=== PATIENT | male | born 1935 | race Caucasian/White ===

== ENCOUNTER 2019-12-08 15:21 | Emergency (ER) | payer MEDICAID ==
--- NOTE | 2019-12-08 15:25 | EDM.PDOC ---
ED HPI GENERAL MEDICAL PROBLEM - General Chief Complaint: General Stated Complaint: FALL VIA NORTH Time Seen by Provider: 12/08/19 15:21 Source of Information: Reports: Patient, EMS History Limitations: Reports: No Limitations - History of Present Illness INITIAL COMMENTS - FREE TEXT/NARRATIVE: 84-year-old male was being wheeled into the clinic to have his shoulder examined when he slipped out of his wheelchair onto the floor. Because of his fall he was sent to the emergency room, however now that he is here he said he was not hurt. His main concern is his left shoulder, he fell on it 3 weeks ago and it had been black and blue and sore ever since, bruising is markedly improved and almost gone but it continues to be painful. 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 Onset: Sudden Duration: Hour(s): (Within the last hour) Associated Symptoms: Reports: No Other Symptoms - Related Data Allergies Allergy/AdvReac Type Severity Reaction Status Date / Time aspirin Allergy Cannot Verified 12/08/19 15:28 Remember iodine Allergy Cannot Verified 12/08/19 15:28 Remember Home Meds: Home Meds Acetaminophen [Tylenol] 1,000 mg PO Q6H PRN 12/08/19 [History] Allopurinol [Zyloprim] 100 mg PO DAILY 12/08/19 [History] Colchicine 0.6 mg PO Q4HR PRN 12/08/19 [History] Docusate Sodium [Dok] 100 mg PO TID PRN 12/08/19 [History] Doxycycline [Vibramycin] 100 mg PO BID 12/08/19 [History] Escitalopram Oxalate [Lexapro] 10 mg PO DAILY 12/08/19 [History] Finasteride 5 mg PO DAILY 12/08/19 [History] Furosemide [Lasix] 40 mg PO DAILY 12/08/19 [History] Lactulose [Cephulac] 30 ml PO TID 12/08/19 [History] Lactulose [Chronulac] 30 - 45 ml PO TID PRN 12/08/19 [History] Rifaximin [Xifaxan] 550 mg PO BID 12/08/19 [History] Spironolactone 50 mg PO DAILY 12/08/19 [History] Tobramycin [Tobrex 0.3% Ophth Oint] 0.5 inch EYERT BID 12/08/19 [History] oxyCODONE HCl/Acetaminophen [Oxycodon-Acetaminophen 2.5-325] 1 - 2 tab PO Q4H PRN 12/08/19 [History] ED ROS GENERAL - Review of Systems Review Of Systems: See Below Constitutional: Denies: Fever, Chills Respiratory: Denies: Shortness of Breath Cardiovascular: Denies: Chest Pain Musculoskeletal: Reports: Shoulder Pain (Shoulder pain was going to be evaluated at the clinic today before he slipped out of his wheelchair) Skin: Denies: Bruising ED EXAM, GENERAL - Physical Exam Exam: See Below Exam Limited By: No Limitations General Appearance: Alert, No Apparent Distress Head: Atraumatic Neck: Supple Respiratory/Chest: No Respiratory Distress Extremities: Other (I can passively move both lower extremities without any hip discomfort, and see no external evidence of injury or asymmetry. However examining the upper extremities, there is a step-off under the AC joint of the left shoulder, and tenderness to palpation of the proximal humerus with even passive range of motion.) Course - Vital Signs Last Recorded V/S: Last Vital Signs Temp 97.5 F 12/08/19 15:28 Pulse 49 L 12/08/19 16:14 Resp 16 12/08/19 16:14 BP 150/49 H 12/08/19 16:14 Pulse Ox 94 L 12/08/19 16:14 - Re-Assessments/Exams Free Text/Narrative Re-Assessment/Exam: 12/08/19 15:25 No need for x-ray that I can see as far as the hips are concerned, however he needs an x-ray of the left shoulder and a 1 view chest x-ray. 12/08/19 17:15 Left shoulder x-rays interpreted as fifth and sixth rib fractures but no fracture of the humerus. I do think the humerus has a compacted fracture of the surgical neck as well as possible anterior dislocation. I discussed this with orthopedics in [place], they would like to see him in the near future. He was placed in a sling and sent back to his assisted living with plans on making an orthopedic referral in [place] in the very near future. Departure - Departure Time of Disposition: 17:35 Disposition: Home, Self-Care 01 Clinical Impression: Fall from wheelchair Qualifiers: Encounter type: initial encounter Qualified Code(s): W05.0XXA - Fall from non- moving wheelchair, initial encounter Closed fracture of left proximal humerus Qualifiers: Encounter type: initial encounter Fracture morphology: unspecified fracture morphology Qualified Code(s): S42.202A - Unspecified fracture of upper end of left humerus, initial encounter for closed fracture - Discharge Information Instructions: Humerus Fracture Treated With Immobilization, [id number] Referrals: PCP,None [Primary Care Provider] - Forms: ED Department Discharge Care Plan Goals: Continue medications and activity as tolerated. Wear sling until recheck, and have an appointment made at the [place] orth[facility] clinic to check the left shoulder injury as soon as possible. Please call and make a orthopedic apt regarding your left shoulder injury. Sepsis Event Note - Focused Exam Date Exam was Performed: 12/09/19 Time Exam was Performed: 07:18
--- NOTE | 2019-12-08 16:32 | CRLCR ---
Indication: Fall. Pain. Technique: TechniqueThree views of the left shoulder. Comparison: None Findings: Fractures of the left 5th and 6th ribs are identified. These may not be acute. The humeral head is seated within the glenoid. Degenerative changes are identified at the acromioclavicular and glenohumeral joint space. Impression: Left rib fractures which may be subacute. Degenerative change of the left shoulder. Dictated by Hellen Mac MD @ Dec 08 2019 4:30PM Signed by Dr. Hellen Mac @ Dec 08 2019 4:31PM
--- NOTE | 2019-12-08 16:32 | CRLCR ---
Indication: Fall. Chest wall pain. Technique: A single AP portable view of the chest. Comparison: None Findings: The heart is borderline in size. Left basilar atelectasis and/or infiltrate and trace left pleural effusion identified. The right lung is clear. No pneumothorax is identified. Impression: Cardiomegaly. Left basilar atelectasis and/or infiltrate and small left pleural effusion Dictated by Hellen Mac MD @ Dec 08 2019 4:29PM Signed by Dr. Hellen Mac @ Dec 08 2019 4:30PM
== END 2019-12-08 17:42 | disposition home or self-care (01) ==
LOC: JP.ED 15:21
DX: S42.202A Unspecified fracture of upper end of left humerus, initial encounter for closed fracture (principal); Z88.6 Allergy status to analgesic agent; Z88.8 Allergy status to other drugs, medicaments and biological substances; W05.0XXA Fall from non-moving wheelchair, initial encounter
CPT/HCPCS: 71045; 73030-LT; 99284-25